=== PATIENT | female | born 1990 | race Caucasian/White ===

== ENCOUNTER 2018-11-02 15:03 | Inpatient (IN) ==
[2018-11-02] MEDS ORDERED: ceFAZolin 3,000 MG in SYRINGE 1 EACH IV ONE (15:25)
[2018-11-02] MEDS ORDERED: CITRIC ACID/SODIUM CITRATE 30 ML UDCUP PO ONE (15:25)
[2018-11-02] MEDS ORDERED: LACTATED RINGERS 1,000 ML IV SCH ×2 (15:30→17:30)
[2018-11-02] MEDS ORDERED: OXYTOCIN/LR 30 UNIT/1,000 ML BAG IV ONE (15:55)
[2018-11-02] MEDS ORDERED: OXYTOCIN 10 UNIT/ML VIAL IM ONE (15:55)
[2018-11-02 16:13] LABS: Basophils % 0.3 % (0.0-0.8); Eosinophils % 0.3 % (0.00-10.9); Hematocrit 33.6 VOL% (35.7-47.0); Hemoglobin 10.1 GM/DL (12.0-16.0); Immature Granulocytes % 0.5 %; Immature Granulocytes Absolute 0.05 #; Lymphocytes # 2.1 10*3/uL (1.4-4.0); Lymphocytes % 20.8 % (21.3-54.2); Mean Corpuscular HGB Conc 30.1 GM/DL (32-36); Mean Corpuscular Hemoglobin 25 PG (27-34); Mean Corpuscular Volume 81.6 FL (87-102); Mean Platelet Volume 10.8 FL (9.6-12.0); Monocytes # 0.7 10*3/uL (0.11-0.8); Monocytes % 7.1 % (1.7-12.7); Neutrophils # 7.2 10*3/uL (1.4-7.4); Platelet Count 317 T/CUMM (130-400); Red Blood Count 4.12 MC/CUMM (3.8-5.5); Red Cell Distribution Width 14.9 % (9.3-17.3); White Blood Count 10.2 T/CUMM (4-12)
[2018-11-02] MEDS ORDERED: SODIUM CHLORIDE 0.9% 100 ML IV ONE (16:22)
[2018-11-02] MEDS ORDERED: FAMOTIDINE 20 MG/2 ML VIAL IV ONE (16:25)
[2018-11-02] MEDS ORDERED: BUPIVACAINE SPINAL 0.75% 2 ML AMP SPINAL ONE (16:32)
[2018-11-02 16:36] LABS: Albumin 2.5 G/DL (3.4-5.0); Bilirubin,Total 0.6 MG/DL (0.2-1.0); Calcium 8.4 MG/DL (8.5-10.1); Osmolality,Calculated 272.5 MOS/KG (273-304); Potassium 3.8 MMOL/L (3.5-5.1); Total Protein 7.2 G/DL (6.4-8.3)
[2018-11-02 17:19] LABS: Cord Arterial Blood HCO3 25.8 MMOL/L
[2018-11-02 17:23] LABS: Cord Venous Blood HCO3 24.1 MMOL/L; Cord Venous Blood PCO2 53.6 MMHG
[2018-11-02 17:28] LABS: Apearance,Urine CLEAR (Clear); Bacteria,Urine Occasional /HPF (Few); Bilirubin,Urine Negative (Negative); Blood, Urine Negative (Negative); Glucose,Urine (UA) Negative (Negative); Ketones,Urine 80 mg/dL (Negative); Mucus,Urine Occasional /LPF (Occasional); Nitrite,Urine Negative (Negative); Protein,Urine Negative; RBC,Urine 1 /HPF (0-4); Squamous Epithelial Cell,Urine Occasional /HPF (0-10); Urine Color Yellow (Yellow); Urine Specific Gravity 1.009 (1.001-1.035); Urine Urobilinogen < 2.0 EU/DL (0.2-1.0); WBC,Urine 1 /HPF (0-6)
[2018-11-02] MEDS ORDERED: MAGNESIUM HYDROXIDE SUSP 30 ML UDCUP PO PRN (17:28)
[2018-11-02] MEDS ORDERED: ONDANSETRON 4 MG/2 ML VIAL IV PRN (17:28)
[2018-11-02] MEDS ORDERED: SIMETHICONE CHEW 80 MG TABLET PO PRN (17:28)
[2018-11-02] MEDS ORDERED: ACETAMINOPHEN 325 MG TABLET PO PRN (17:28)
[2018-11-02] MEDS ORDERED: RHO(D) IMMUNE GLOBULIN 300 MCG SYRINGE IM ONE (17:28)
[2018-11-02] MEDS ORDERED: OXYTOCIN/LR 20 UNIT/1,000 ML BAG IV ONE (17:28)
[2018-11-02] MEDS ORDERED: ceFAZolin 1,000 MG in SYRINGE 1 EACH IV SCH (17:30)
[2018-11-02 17:33] LABS: Cord Venous Blood PO2 18.5 MMHG
[2018-11-02] MEDS ORDERED: MORPHINE 10 MG/10 ML VIAL ONE (17:36)
[2018-11-02] MEDS: DOCUSATE SODIUM 100 MG CAPSULE PO SCH (22:16)
[2018-11-02] MEDS ORDERED: PROMETHAZINE 25 MG/1 ML VIAL IM PRN (23:15)
[2018-11-03] MEDS ORDERED: ONDANSETRON 4 MG/2 ML VIAL IV PRN (01:09)
[2018-11-03] MEDS ORDERED: PROMETHAZINE 25 MG/1 ML VIAL IM PRN (01:24)
[2018-11-03 01:33] LABS: Basophils % 0.2 % (0.0-0.8); Eosinophils % 0.1 % (0.00-10.9); Hematocrit 32.4 VOL% (35.7-47.0); Hemoglobin 9.9 GM/DL (12.0-16.0); Immature Granulocytes % 0.5 %; Immature Granulocytes Absolute 0.05 #; Lymphocytes % 11.4 % (21.3-54.2); Mean Corpuscular HGB Conc 30.6 GM/DL (32-36); Mean Corpuscular Hemoglobin 25 PG (27-34); Mean Platelet Volume 10.6 FL (9.6-12.0); Monocytes # 0.7 10*3/uL (0.11-0.8); Monocytes % 7.4 % (1.7-12.7); Neutrophils # 7.3 10*3/uL (1.4-7.4); Neutrophils % 80.4 % (38.7-73.9); Platelet Count 251 T/CUMM (130-400); Red Blood Count 3.95 MC/CUMM (3.8-5.5); Red Cell Distribution Width 14.9 % (9.3-17.3); White Blood Count 9.1 T/CUMM (4-12)
[2018-11-03] MEDS ORDERED: KETOROLAC 30 MG/1 ML VIAL IV PRN (02:24)
[2018-11-03] MEDS ORDERED: MEPERIDINE 25 MG/1 ML VIAL IV PRN (02:56)
[2018-11-03] MEDS: IBUPROFEN 800 MG TABLET PO PRN ×2 (06:57→16:40)
[2018-11-03] MEDS ORDERED: ceFAZolin 1,000 MG in SYRINGE 1 EACH IV SCH (08:30)
[2018-11-03] MEDS: MULTIVITAMIN (PRENATAL) TABLET PO SCH (08:35)
[2018-11-03] MEDS: METOCLOPRAMIDE 10 MG TABLET PO SCH ×2 (08:35→17:03)
[2018-11-03] MEDS: DOCUSATE SODIUM 100 MG CAPSULE PO SCH ×2 (08:36→20:30)
[2018-11-03 08:56] LABS: Basophils % 0.2 % (0.0-0.8); Eosinophils % 0.2 % (0.00-10.9); Hemoglobin 9.7 GM/DL (12.0-16.0); Immature Granulocytes % 0.3 %; Immature Granulocytes Absolute 0.03 #; Lymphocytes # 1.4 10*3/uL (1.4-4.0); Lymphocytes % 15.6 % (21.3-54.2); Mean Corpuscular HGB Conc 30.3 GM/DL (32-36); Mean Corpuscular Hemoglobin 25 PG (27-34); Mean Corpuscular Volume 82.1 FL (87-102); Mean Platelet Volume 10.6 FL (9.6-12.0); Monocytes # 0.7 10*3/uL (0.11-0.8); Monocytes % 8.1 % (1.7-12.7); Neutrophils # 6.6 10*3/uL (1.4-7.4); Neutrophils % 75.6 % (38.7-73.9); Platelet Count 243 T/CUMM (130-400); Red Cell Distribution Width 14.8 % (9.3-17.3); White Blood Count 8.8 T/CUMM (4-12)
[2018-11-03] MEDS: MAGNESIUM HYDROXIDE SUSP 30 ML UDCUP PO SCH ×2 (13:44→20:30)
[2018-11-03] MEDS: SIMETHICONE CHEW 80 MG TABLET PO SCH ×4 (13:45→20:30)
[2018-11-03] MEDS ORDERED: IBUPROFEN 800 MG TABLET PO PRN (21:20)
[2018-11-03] MEDS ORDERED: BISACODYL 10 MG SUPP RECTAL PRN (21:30)
[2018-11-04] MEDS: METOCLOPRAMIDE 10 MG TABLET PO SCH ×2 (00:06→08:04)
[2018-11-04] MEDS ORDERED: MAGNESIUM CITRATE 300 ML BOTTLE PO ONE (06:00)
[2018-11-04 07:20] VITALS: BP 110/66
[2018-11-04] MEDS: SIMETHICONE CHEW 80 MG TABLET PO SCH (08:04)
[2018-11-04] MEDS: DOCUSATE SODIUM 100 MG CAPSULE PO SCH (08:04)
[2018-11-04] MEDS: MULTIVITAMIN (PRENATAL) TABLET PO SCH (08:04)
[2018-11-04] MEDS: MAGNESIUM HYDROXIDE SUSP 30 ML UDCUP PO SCH (10:43)
[2018-11-04] MEDS ORDERED: INFLUENZA VIRUS VACCINE 0.5 ML SYRINGE IM ONE ×2 (11:00→16:00)
== END 2018-11-04 15:45 | disposition home or self-care (01) | DRG 788 ==
LOC: N.LDOUT 15:03 → N.LD 15:25 → N.OB 21:00
PROVIDERS: ADMIT Obstetrics & Gynecology; ATTEND Obstetrics & Gynecology
PROC: LDCSECT (ICD-10-PCS; 2018-11-02 16:30)